=== PATIENT | male | born 1960 | race Caucasian/White ===

== ENCOUNTER 2021-07-21 11:39 | Emergency (ER) | payer OTHER | END 2021-07-21 14:56 | disposition home or self-care (01) | LOC: ED 11:39 | DX: U07.1 COVID-19 (principal) ==

== ENCOUNTER → 2024-03-08 | Outpatient (CLI) | payer MEDICARE | END | disposition home or self-care (01) | LOC: LAB 15:37 | PROVIDERS: ATTEND Urology | DX: Z12.5 Encounter for screening for malignant neoplasm of prostate (principal) ==

== ENCOUNTER 2025-01-18 22:28 | Emergency (ER) | payer OTHER ==
[~2025-01-18] VITALS: Ht 177.8 cm; Wt 77.1 kg
[2025-01-18] MEDS ORDERED: FLOMAX0.4 MG PO (22:50)
[2025-01-18] MEDS ORDERED: XELJANZ10 MG PO (22:50)
[2025-01-18] MEDS ORDERED: TOPCARE OMEPRAZ20 MG PO (22:51)
[2025-01-18] MEDS ORDERED: NEURONTIN300 MG PO (22:51)
[2025-01-18] MEDS ORDERED: MIRAPEX ER1.5 MG PO (22:53)
[2025-01-19] MEDS ORDERED: diazePAM 5 MG TAB PO ONE (02:35)
[2025-01-19] MEDS ORDERED: CYCLOBENZAPRINE10 MG PO (02:58)
== END 2025-01-19 03:09 | disposition home or self-care (01) ==
LOC: ED 22:28
DX: S16.1XXA Strain of muscle, fascia and tendon at neck level, initial encounter (principal); S50.02XA Contusion of left elbow, initial encounter; Z91.040 Latex allergy status; Z79.899 Other long term (current) drug therapy; V49.9XXA Car occupant (driver) (passenger) injured in unspecified traffic accident, initial encounter; Y93.89 Activity, other specified; Y92.488 Other paved roadways as the place of occurrence of the external cause; Y99.0 Civilian activity done for income or pay